=== PATIENT | female | born 1990 | race Two or more races ===

== ENCOUNTER 2025-03-27 20:31 | Inpatient (IN) | payer BC ==
[~2025-03-27] VITALS: Ht 188 cm; Wt 127.6 kg
[2025-03-27 21:00] VITALS: BP 140/86; PULSE 80; RESP 18; TEMP 98.5; O2SAT 98
[2025-03-27 21:04] VITALS: BP 140/86; PULSE 80; RESP 18; TEMP 98.5; O2SAT 98
[2025-03-27] MEDS ORDERED: MULT-1018 PO (21:28)
[2025-03-27] MEDS ORDERED: CHOL20007 PO (21:28)
[2025-03-27] MEDS ORDERED: HYDROmorphone HCL 2 MG/ML VL/or syr IV PRN ×4 (21:30→22:30)
[2025-03-27] MEDS ORDERED: ONDANSETRON HCL 4 MG/2 ML VIAL IV PRN (21:30)
[2025-03-27 22:00] VITALS: PULSE 77; RESP 18
[2025-03-27] MEDS ORDERED: NITROGLYCERIN 0.4 MG SL TAB SL PRN (22:15)
[2025-03-27] MEDS: SOD CHL 0.45% IV ONE (22:15)
[2025-03-27] MEDS ORDERED: MORPHINE SULFATE INJ 2 MG/ml SYRG IV PRN ×2 (22:15→22:30)
--- NOTE | 2025-03-27 23:12 | DVHHP2 ---
Admitting Diagnosis: Recurrent RLQ abdominal pains Nausea vomiting History of Present Illness Ms. Ceron 35-year-old female Is admitted for further eval and management of signs symptoms of recurrence of RLQ abdominal pains associated with nausea vomiting for past 3-4 days The patient had known prior history of ovarian cyst which measures 4 cm by ultrasound. She follows up with Dr. Torrez as outpatient. Her next due appointment is April 2025, recently I attended the patient for similar symptoms Past Medical History Past medical history records: Reviewed Cardiovascular history: Respiratory history: obesity hypoventilation Gastrointestinal history: Genitourinary history: Endocrine history: Obesity with current BMI 36 kg per m2 Patient follows diet and exercise Thyroid goiter Neurology history: Musculoskeletal history: Chronic macular erythematous rash over upper chest Hemato-oncology history: Iron-deficiency anemia Psychiatric history: Patient Family History: Cardiovascular disease G8 FATHER Diabetes mellitus G8 MOTHER Home Meds Reported Medications Multiple Vitamin (Multivitamins) Tab, 1 TAB PO DAILY, #90 TAB 3 Refills 03/27/25 Cholecalciferol (VITAMIN D3) 2,000 Unit Tab, 1 TAB PO DAILY, #30 TAB 5 Refills 03/27/25 Current Medications Current Medications Medications (Trade) Dose Ordered Sig/Bryce Route PRN Reason Start Time Stop Time Status Last Admin Sodium Chloride 1,000 ml @ 60 mls/hr [id number] IV 03/27/25 21:30 UNV Pantoprazole Sodium (Protonix) 40 mg BID IV 03/28/25 08:00 UNV Ondansetron HCl (Zofran) 4 mg Q8HPRN PRN IV NAUSEA / VOMITING 03/27/25 21:30 UNV Hydromorphone HCl (Dilaudid Injection) 0.6 mg Q4HPRN PRN IV MODERATE PAIN (4-6 PAIN SCALE) 03/27/25 21:30 03/27/25 22:43 DC Hydromorphone HCl (Dilaudid Injection) 0.8 mg Q4HPRN PRN IV SEVERE PAIN (7-10 PAIN SCALE) 03/27/25 21:30 03/27/25 22:43 DC Ceftriaxone Sodium 50 ml @ 100 mls/hr DAILY@09 IV 03/27/25 22:00 UNV Nitroglycerin (Ntrostat Sublingual) 0.4 mg Q5MINP PRN SL FOR CHEST PAIN 03/27/25 22:15 UNV Morphine Sulfate 2 mg Q30M PRN IV FOR CHEST PAIN 03/27/25 22:15 03/27/25 22:43 DC Hydromorphone HCl (Dilaudid Injection) 0.6 mg Q4HPRN PRN IV MODERATE PAIN (4-6 PAIN SCALE) 03/27/25 22:30 UNV Hydromorphone HCl (Dilaudid Injection) 0.8 mg Q4HPRN PRN IV SEVERE PAIN (7-10 PAIN SCALE) 03/27/25 22:30 UNV Morphine Sulfate 2 mg Q30M PRN IV FOR CHEST PAIN 03/27/25 22:30 UNV Review of Systems Constitutional: Denies easy tiredness, denies fever chills weight loss HEENT: Denies headache/conjunctival/ENT pains or congestion, Denies hoarse voice, hearing or visual deficit Neck: Denies cervical spine local/radicular pains, denies goiters/stridor Denies stiffness spasms, reduced ROM, RS: Denies chest congestion, cough, wheezing, SOB, pleuritic chest pains CVS: Denies angina, palpitation, SOB, edema, orthopnea, PND GI: Reports loss of appetite, abdominal pains, tenderness, N/V Denies melena, GI bleeding,constipation, : Reports RLQ abdominal pain Denies dysuria, flank pains, frequency, hematuria, Denies passing foul odor/cloudy turbid urine, nocturia MS: Denies generalized aches/pains, back pains, spasms, stiffness, Denies radicular pains, denies generalized myalgias/muscle weakness EXTs: Denies edema, rash, open wounds, discoloration, radicular pains NEURO: Denies hypersomnolence, confused mental status, Denies focal weakness or seizures/tremors/myoclonic jerks SKIN: Denies rashes or open ulcerated wound ENDOCRINE: Denies polyuria, polydipsia, denies intolerance to heat and cold HEM/LYMPH: Denies easy tiredness, bruising, lymphadenopathy ALLERGY: Denies allergic reactions Psychiatry: Denies anxiety or depression disorder Otherwise the Review of Systems is Negative as per History & Physical Interview: Yes Vital Signs Vital Signs Date Time Temp Pulse Resp B/P (MAP) Pulse Ox O2 Delivery O2 Flow Rate FiO2 03/27/25 21:04 98.5 80 18 140/86 (104) 98 98.5 Physical Exam General appearance: Well-developed, tall obese [place] female Awake alert oriented x3 no respiratory distress Head: Normocephalic nontraumatic Eyes: EOMI, PAULA, sclera nonicteric, conjunctive- pale ENT: No congestion, NSL bilateral symmetrical, oral mucosa dry Neck: Supple, carotid upstroke +2, trachea midline, JVD-3 cm, C spine- Full ROM No thyroid or lymph node , no use of sternomastoid muscle Chest: Bilateral symmetrical expansions, No costochondral tenderness Breasts: I exam - Bilateral symmetrical, Pexam - deferred Lungs: clear breath sounds all over except reduced at bases CVS: PMI- cm medial to L MCL in fifth ICS , S1- S2 NSR no S3 GI: Abdomen soft, obese, bowel sounds normoactive No focal tenderness, no rebound tenderness No hepatosplenomegaly, no mass no hernia , : No CVA tenderness, no bladder mass palpable, genitalia-NE SKIN: Turgor normal, color pink, no rash, no icterus, No varicosity, no ulcers or wounds EXTs: No edema, color pink, no rash, no ecchymosis distal pulses +2 capillary refill <2 seconds, No open wounds JOINTS; full range of motion BACK: No apparent lumbosacral spinal muscle tenderness, LYMPH NODES: No cervical, axillary or inguinal lymph nodes Neuro: Awake alert oriented 4, coherent, all cognitives- intact No pronator drift, no focal motor deficit, No focal sensory deficit, DTR +2, gait steady PSYCH: Affect mildly depressed-denies suicidal ideation Admitting Diagnosis: RLQ abdominal pains a. Ruled out acute appendicitis b. Torsion of ovarian cyst Hypovolemia Plan Admit patient to medical floor TOM SPARROW MD March 27, 2025 23:12
[2025-03-28] VITALS (9 sets, daily range): BP systolic 121–135; BP diastolic 69–90; PULSE 68–80; RESP 16–20; TEMP 97.5–98.5; O2SAT 96–98
[2025-03-28 00:25] LABS: Eosinophils # (auto) 0.1 10 ^3/uL (0-0.8); Hemoglobin 10.3 g/dL (12.2-16.2); Monocytes # (auto) 0.4 10 ^3/uL (0-1.3); Neutrophils # (auto) 3.6 10 ^3/uL (1.6-8.6); Nucleated Red Blood Cells % 0.1 %
[2025-03-28 00:27] LABS: Basophils # (auto) 0.1 10 ^3/uL (0-0.2); Basophils % (auto) 0.9 % (0.0-2.0); Eosinophils % (auto) 1.6 % (0.0-7.0); Hematocrit 33.9 % (36.0-46.0); Lymphocytes % (auto) 32.2 % (10.0-50.0); Mean Corpuscular Hemoglobin 22.8 pg (28.0-32.0); Mean Corpuscular Hgb Conc. 30.4 g/dL (32.0-36.0); Mean Corpuscular Volume 74.9 fL (80.0-100.0); Monocytes % (auto) 6.9 % (0.0-12.0); Neutrophils % (auto) 58.4 % (37.0-80.0); Platelet Count (auto) 304 10^3/uL (140-450); Red Blood Cells 4.52 10^6/uL (4.0-5.20); Red Cell Distribution Width 18.2 % (11.8-14.3); White Blood Cell 6.1 10^3/uL (4.4-10.8)
[2025-03-28 00:35] LABS: Alanine Aminotransferase 686 U/L (7-40); Albumin 4.1 g/dL (3.2-4.8); Alkaline Phosphatase 184 U/L (46-116); Anion Gap 9 (5-15); Aspartate Aminotransferase 564 U/L (13-40); BUN/Creatinine Ratio 9.8 (10.0-20.0); Blood Urea Nitrogen 8 mg/dL (9-23); Carbon Dioxide 22 mmol/L (20-31); Chloride 108 mmol/L (98-107); Glucose 86 mg/dL (74-106); Sodium 139 mmol/L (136-145); Total Protein 6.9 g/dL (5.7-8.2)
[2025-03-28 00:36] LABS: Bilirubin, Total 1.5 mg/dL (0.2-1.0)
[2025-03-28] MEDS: PANTOPRAZOLE 40 MG/10 ML VIAL INJ IV ONE (01:02)
[2025-03-28] MEDS: SOD CHL 0.45% 1,000 ML IV SCH ×2 (01:02→11:45)
--- NOTE | 2025-03-28 01:25 | DVH ---
INDICATION: abdominal pain TECHNIQUE: Multiple real-time sonographic images were obtained of the right upper quadrant. COMPARISON: None FINDINGS: Liver is within normal limits in size and echogenicity measuring 15.8 cm. No focal lesions identified in the liver. There is no intrahepatic or extrahepatic ductal dilatation with the common bile duct measuring 3.5 mm . S/p cholecystectomy. Pancreas is obscured by overlying bowel gas. Right kidney measures 10 cm and appears unremarkable with no hydronephrosis. IMPRESSION: S/p cholecystectomy. Otherwise unremarkable right upper quadrant sonogram.
--- NOTE | 2025-03-28 01:27 | DVH ---
INDICATION: HX OF OV CYST TECHNIQUE: Multiple real-time grayscale transabdominal sonographic images along with color and duplex Doppler of the uterus and ovaries were obtained. COMPARISON: None FINDINGS: Uterus measures approximately 8.6 x 5 x 5 cm and appears unremarkable. Endometrium measures 4.5 mm in thickness and appears unremarkable. Neither of the ovaries could be visualized. No evidence of pelvic mass or fluid collection. IMPRESSION: No abnormality demonstrated.
[2025-03-28] MEDS: cefTRIAXone 1GM/50ML D5W 50 ML IV SCH (02:36)
[2025-03-28 04:53] LABS: Urine Bacteria None Seen /hpf (None Seen)
[2025-03-28 05:05] LABS: Urine Blood 3+ /uL (Negative); Urine Clarity Clear (Clear); Urine Color Yellow (Yellow); Urine Protein, UAD Negative (Negative); Urine Squamous Epithelial Cell FEW /hpf (<5); Urine Urobilinogen Normal (Negative); Urine WBC 2 /HPF (0-5)
--- NOTE | 2025-03-28 05:33 | DVH ---
EXAM: XR Chest, 1 View CLINICAL INDICATION: abdominal pain TECHNIQUE: Frontal view of the chest. COMPARISON: None FINDINGS: LUNGS AND PLEURAL SPACES: Unremarkable. No consolidation. No pneumothorax. HEART: Unremarkable. No cardiomegaly. MEDIASTINUM: Unremarkable. Normal mediastinal contour. BONES/JOINTS: Unremarkable. No acute fracture. OTHER FINDINGS: . IMPRESSION: No acute cardiopulmonary process.
[2025-03-28] MEDS: PANTOPRAZOLE 40 MG/10 ML VIAL INJ IV SCH (07:23)
[2025-03-28 09:02] LABS: Basophils # (auto) 0 10 ^3/uL (0-0.2); Hemoglobin 10.1 g/dL (12.2-16.2); Monocytes # (auto) 0.4 10 ^3/uL (0-1.3); White Blood Cell 5.2 10^3/uL (4.4-10.8)
[2025-03-28 09:04] LABS: Basophils % (auto) 0.8 % (0.0-2.0); Eosinophils # (auto) 0.1 10 ^3/uL (0-0.8); Eosinophils % (auto) 2.4 % (0.0-7.0); Lymphocytes % (auto) 37.2 % (10.0-50.0); Mean Corpuscular Hemoglobin 22.8 pg (28.0-32.0); Mean Corpuscular Hgb Conc. 31.5 g/dL (32.0-36.0); Mean Corpuscular Volume 72.2 fL (80.0-100.0); Monocytes % (auto) 7.1 % (0.0-12.0); Neutrophils # (auto) 2.8 10 ^3/uL (1.6-8.6); Neutrophils % (auto) 52.5 % (37.0-80.0); Nucleated Red Blood Cells % 0.1 %; Platelet Count (auto) 348 10^3/uL (140-450); Red Blood Cells 4.44 10^6/uL (4.0-5.20); Red Cell Distribution Width 17.9 % (11.8-14.3)
[2025-03-28 09:05] LABS: Albumin 4.3 g/dL (3.2-4.8); Anion Gap 7 (5-15); BUN/Creatinine Ratio 8.1 (10.0-20.0); Calcium 9.5 mg/dL (8.7-10.4); Carbon Dioxide 24 mmol/L (20-31); Glucose 95 mg/dL (74-106); Potassium 4.1 mmol/L (3.5-5.1); Sodium 141 mmol/L (136-145); Total Protein 7.2 g/dL (5.7-8.2)
[2025-03-28 09:06] LABS: Bilirubin, Total 1.1 mg/dL (0.2-1.0)
[2025-03-28 09:07] LABS: Alanine Aminotransferase 627 U/L (7-40); Alkaline Phosphatase 207 U/L (46-116); Aspartate Aminotransferase 477 U/L (13-40); Blood Urea Nitrogen 7 mg/dL (9-23); Chloride 110 mmol/L (98-107)
[2025-03-28] MEDS: IOHEXOL 300 MG/ML 100ML BOTTLE IJ ONE (11:32)
[2025-03-28] MEDS: OMNIPAQUE 12mg/ml 500ml ORAL SOLUTION PO ONE (11:32)
--- NOTE | 2025-03-28 11:35 | DVH ---
Exam: CT CT ABD PELVIS W CON-ORAL IV History: abdominal pain TECHNIQUE: Multiple contiguous axial CT images of the abdomen and pelvis were obtained with intraveno us and oral contrast. The images were reformatted to generate coronal and sagittal reconstructions. 1 00 cc of Omnipaque 350 contrast was injected intravenously. All CT scans at this medical facility are performed using dose modulation techniques as appropriate t o a performed exam including the following:Automated exposure control was utilized; adjustment of the MA and/or KV according to patient size; and use of iterative reconstruction technique. Radiation Dose Information: CT Dose: CTDI volume is 25.69 mGy. Dose-length product is 1521.64 mGy*cm Comparison: None FINDINGS: Gallbladder is surgically absent. The liver demonstrates decreased attenuation likely related fatty i nfiltration. The pancreas, kidneys, adrenal glands, and spleen appear within normal limits. There is no evidence of abdominal lymphadenopathy. There is no free fluid or free air. The stomach grossly appears unremarkable. The small and large bowel loops demonstrate normal caliber and distribution. The appendix is not seen in the right lower quadrant abdomen. There are no secondar y signs of acute appendicitis. The abdominal aorta and IVC appear within normal limits. The bladder appears within normal limits the degree of distention. The uterus appears within normal l imits. There is no evidence of a pelvic mass or lymphadenopathy. There is no free fluid collection. Lung bases are clear. There is no acute osseous abnormality. IMPRESSION: 1. There is no acute process in the abdomen and pelvis. 2. Hepatic steatosis. 3. Cholecystectomy. HS:Y
--- NOTE | 2025-03-28 11:45 | DVHPN2 ---
Progress Note - Dictate vital signs Vital Sign Date Time Temp Pulse Resp B/P (MAP) Pulse Ox O2 Delivery O2 Flow Rate FiO2 03/28/25 09:00 98.5 68 18 135/90 (105) 97 98.5 03/28/25 08:00 Room Air* 0 21 Total Intake and Output 03/27/25 03/27/25 03/28/25 15:00 23:00 07:00 Intake Total 630 ml Balance 630 ml medications Current Medications Medications Dose Ordered Sig/Bryce Route Start Time Stop Time Status Last Admin Dose Admin Sodium Chloride 1,000 ml @ 60 mls/hr [id number] IV 03/27/25 21:30 03/28/25 01:02 60 MLS/HR Pantoprazole Sodium 40 mg BID IV 03/28/25 08:00 03/28/25 09:42 40 MG Ondansetron HCl 4 mg Q8HPRN PRN IV 03/27/25 21:30 Ceftriaxone Sodium 50 ml @ 100 mls/hr Q24H IV 03/28/25 02:00 03/28/25 02:36 100 MLS/HR Nitroglycerin 0.4 mg Q5MINP PRN SL 03/27/25 22:15 Hydromorphone HCl 0.6 mg Q4HPRN PRN IV 03/27/25 22:30 Hydromorphone HCl 0.8 mg Q4HPRN PRN IV 03/27/25 22:30 Morphine Sulfate 2 mg Q30M PRN IV 03/27/25 22:30 objective Physical Exam General appearance: Well-developed, tall obese female Awake alert oriented x3 no respiratory distress Head: Normocephalic nontraumatic Eyes: EOMI, PAULA, sclera nonicteric, conjunctive- pale ENT: No congestion, NSL bilateral symmetrical, oral mucosa dry Neck: Supple, carotid upstroke +2, trachea midline, JVD-3 cm, C spine- Full ROM No thyroid or lymph node , no use of sternomastoid muscle Chest: Bilateral symmetrical expansions, No costochondral tenderness Breasts: I exam - Bilateral symmetrical, Pexam - deferred Lungs: clear breath sounds all over except reduced at bases CVS: PMI- cm medial to L MCL in fifth ICS , S1- S2 NSR no S3 GI: Abdomen soft, obese, bowel sounds normoactive No focal tenderness, no rebound tenderness No hepatosplenomegaly, no mass no hernia , : No CVA tenderness, no bladder mass palpable, genitalia-NE SKIN: Turgor normal, color pink, no rash, no icterus, No varicosity, no ulcers or wounds EXTs: No edema, color pink, no rash, no ecchymosis distal pulses +2 capillary refill <2 seconds, No open wounds JOINTS; full range of motion BACK: No apparent lumbosacral spinal muscle tenderness, LYMPH NODES: No cervical, axillary or inguinal lymph nodes Neuro: Awake alert oriented 4, coherent, all cognitives- intact No pronator drift, no focal motor deficit, No focal sensory deficit, DTR +2, gait steady PSYCH: Affect mildly depressed-denies suicidal ideation laboratory and microbiology Laboratory Tests 03/28/25 08:35 Test 03/28/25 08:35 Range/Units Serum Glucose 95 74-106 mg/dL Problem List Admitting Diagnosis: RLQ abdominal pains a. Ruled out acute appendicitis b. Torsion of ovarian cyst Hypovolemia Assessment/Plan Plan Admit patient to medical floor TMO SPARROW MD March 28, 2025 11:45
--- NOTE | 2025-03-28 12:52 | DVHINCON2 ---
Date of service: March 28, 2025 Referring Physician hospitalist Reason for Consultation ovarian cyst History of Present Illness pt is admitted for rlq pain assoc with n and vomiting.she has hx of ovarian cyst last cyst 4cm she sees dr smith and was told she has pcos Past Medical History na Past Surgical History choleystectomy Family History na Social History na Patient Family History: Cardiovascular disease G8 FATHER Diabetes mellitus G8 MOTHER Allergies: Coded Allergies: Penicillins (Verified Allergy, Unknown, 03/27/25) Home Meds Reported Medications Multiple Vitamin (Multivitamins) Tab, 1 TAB PO DAILY, #90 TAB 3 Refills 03/27/25 Cholecalciferol (VITAMIN D3) 2,000 Unit Tab, 1 TAB PO DAILY, #30 TAB 5 Refills 03/27/25 Current Medications Current Medications Medications (Trade) Dose Ordered Sig/Bryce Route PRN Reason Start Time Stop Time Status Last Admin Sodium Chloride 1,000 ml @ 60 mls/hr [id number] IV 03/27/25 21:30 03/28/25 11:44 DC 03/28/25 01:02 Pantoprazole Sodium (Protonix) 40 mg BID IV 03/28/25 08:00 03/28/25 09:42 Ondansetron HCl (Zofran) 4 mg Q8HPRN PRN IV NAUSEA / VOMITING 03/27/25 21:30 Hydromorphone HCl (Dilaudid Injection) 0.6 mg Q4HPRN PRN IV MODERATE PAIN (4-6 PAIN SCALE) 03/27/25 21:30 03/27/25 22:43 DC Hydromorphone HCl (Dilaudid Injection) 0.8 mg Q4HPRN PRN IV SEVERE PAIN (7-10 PAIN SCALE) 03/27/25 21:30 03/27/25 22:43 DC Ceftriaxone Sodium 50 ml @ 100 mls/hr Q24H IV 03/28/25 02:00 03/28/25 02:36 Nitroglycerin (Ntrostat Sublingual) 0.4 mg Q5MINP PRN SL FOR CHEST PAIN 03/27/25 22:15 Morphine Sulfate 2 mg Q30M PRN IV FOR CHEST PAIN 03/27/25 22:15 03/27/25 22:43 DC Hydromorphone HCl (Dilaudid Injection) 0.6 mg Q4HPRN PRN IV MODERATE PAIN (4-6 PAIN SCALE) 03/27/25 22:30 Hydromorphone HCl (Dilaudid Injection) 0.8 mg Q4HPRN PRN IV SEVERE PAIN (7-10 PAIN SCALE) 03/27/25 22:30 Morphine Sulfate 2 mg Q30M PRN IV FOR CHEST PAIN 03/27/25 22:30 Sodium Chloride 1,000 ml @ 40 mls/hr Q24H IV 03/28/25 11:45 03/28/25 11:45 Review of Systems Constitutional: no fever, chill, weight loss HEENT: no eye pain, no hearing loss, no oral lesion, no scleral icterus Heart: no chest pain, no chest pressure Lung: no cough, no dyspnea with exertion Abdomen: see HPI : no pain with urination, normal appearing urine Musculoskeletal: no joint pain, no muscle pain Neurological: no seizure, no loss of sensation, no weakness in extremities Pysch: no depression, no anxiety Derm: no rash, no jaundice Vital Signs Vital Signs Date Time Temp Pulse Resp B/P (MAP) Pulse Ox O2 Delivery O2 Flow Rate FiO2 03/28/25 09:00 98.5 68 18 135/90 (105) 97 98.5 03/28/25 08:00 Room Air* 0 21 Physical Exam SKIN: [nl] HEENT: [nl] NECK: [nl] CARDIAC: [rrr] PULMONARY: [cta] ABDOMEN: [soft ,nt] pelvic -ext genitalia wnl,uterus 8 wks size,nt Labs/Diagnostic Data Labs Test 03/28/25 11:28 03/28/25 08:35 03/28/25 04:45 Range/Units White Blood Count 5.2 4.4-10.8 10^3/uL Red Blood Count 4.44 4.0-5.20 10^6/uL Hemoglobin 10.1 L 12.2-16.2 g/dL Hematocrit 32.0 L 36.0-46.0 % Mean Corpuscular Volume 72.2 L 80.0-100.0 fL Mean Corpuscular Hemoglobin 22.8 L 28.0-32.0 pg Mean Corpuscular Hemoglobin Concent 31.5 L 32.0-36.0 g/dL Red Cell Distribution Width 17.9 H 11.8-14.3 % Platelet Count 348 140-450 10^3/uL Mean Platelet Volume 7.8 6.9-10.8 fL Neutrophils (%) (Auto) 52.5 37.0-80.0 % Lymphocytes (%) (Auto) 37.2 10.0-50.0 % Monocytes (%) (Auto) 7.1 0.0-12.0 % Eosinophils (%) (Auto) 2.4 0.0-7.0 % Basophils (%) (Auto) 0.8 0.0-2.0 % Neutrophils # (Auto) 2.8 1.6-8.6 10 ^3/uL Lymphocytes # (Auto) 2.0 0.4-5.4 10 ^3/uL Monocytes # (Auto) 0.4 0-1.3 10 ^3/uL Eosinophils # (Auto) 0.1 0-0.8 10 ^3/uL Basophils # (Auto) 0 0-0.2 10 ^3/uL Nucleated Red Blood Cells 0.1 % Sodium Level 141 136-145 mmol/L Potassium Level 4.1 3.5-5.1 mmol/L Chloride Level 110 H 98-107 mmol/L Carbon Dioxide Level 24 20-31 mmol/L Anion Gap 7 5-15 Blood Urea Nitrogen 7 L 9-23 mg/dL Creatinine 0.86 0.550-1.02 mg/dL Glomerular Filtration Rate Calc 91 >90 mL/min BUN/Creatinine Ratio 8.1 L 10.0-20.0 Serum Glucose 95 74-106 mg/dL Calcium Level 9.5 8.7-10.4 mg/dL Total Bilirubin 1.1 H 0.2-1.0 mg/dL Aspartate Amino Transferase (AST) 477 H 13-40 U/L Alanine Aminotransferase (ALT) 627 H 7-40 U/L Alkaline Phosphatase 207 H 46-116 U/L Total Protein 7.2 5.7-8.2 g/dL Albumin 4.3 3.2-4.8 g/dL Lipase 31 12-53 U/L Urine Color Yellow Yellow Urine Clarity Clear Clear Urine pH 6.0 5.0-9.0 Urine Specific [place] 1.010 1.001-1.035 Urine Protein Negative Negative Urine Ketones Negative Negative Urine Blood 3+ H Negative /uL Urine Nitrite Negative Negative Urine Bilirubin Negative Negative Urine Urobilinogen Normal Negative mg/dL Urine Leukocyte Esterase Negative Negative /uL Urine RBC 50 0 - 4 /hpf Urine Microscopic WBC 2 0-5 /HPF Urine Squamous Epithelial Cells Few <5 /hpf Urine Bacteria None seen None Seen /hpf Urine Glucose Normal Normal mg/dL Primary Diagnosis abd pain 2' Diagnosis/Comorbidities hx of ovarian cyst currently no evidence of cyst Plan pt is to fu outpt with dr smith \ no intervention needed at this point Plan discussed with: Patient Visit Coding OBGYN Date of Service: March 28, 2025 Billing Provider: MARY CARMEN THORNE DO COMPUTATIONAL SCIENTIST Common Visit Codes: 90251-[id number] OBS CARE (HIGH), 44452-EFF/OBS DISCH DAY >30MIN MARY CARMEN THORNE DO March 28, 2025 12:52
--- NOTE | 2025-03-28 14:28 | DVHINCON2 ---
GI Consult Consult Note GI consult note Date of Consultation: 03/28/2025 Chief Complaint: Abdominal pain Referring Physician: Dr. Harden H&P: 35-year-old female admitted with right lower quadrant abdominal pain, started one-week ago, improved completely now. Patient was also on her menstrual cycle when symptoms started. Patient has history of ovarian cyst. Denies nausea vomiting. BM today no melena or red blood in stool Patient denies alcohol use. Denies history of hepatitis. Does not take Tylenol Status post cholecystectomy Past Medical History: Thyroid, iron deficiency anemia, ovarian cyst Past Surgical History: Cholecystectomy Social History: NO smoking, drinking ETOH and use of illegal drugs. Family History: Noncontributory Review of Systems: Constitutional: no fever, chill, weight loss HEENT: no eye pain, no hearing loss, no oral lesion, no scleral icterus Heart: no chest pain, no chest pressure Lung: no cough, no dyspnea with exertion Abdomen: see HPI Physical exam: General: NAD, AAOX3 Chest: lung mcdaniel clear to auscultation Heart: RRR, no murmur Abdomen: non-distended, no tenderness to palpation, +BS Labs: Labs Test 03/28/25 11:28 03/28/25 08:35 03/28/25 04:45 Range/Units White Blood Count 5.2 4.4-10.8 10^3/uL Red Blood Count 4.44 4.0-5.20 10^6/uL Hemoglobin 10.1 L 12.2-16.2 g/dL Hematocrit 32.0 L 36.0-46.0 % Mean Corpuscular Volume 72.2 L 80.0-100.0 fL Mean Corpuscular Hemoglobin 22.8 L 28.0-32.0 pg Mean Corpuscular Hemoglobin Concent 31.5 L 32.0-36.0 g/dL Red Cell Distribution Width 17.9 H 11.8-14.3 % Platelet Count 348 140-450 10^3/uL Mean Platelet Volume 7.8 6.9-10.8 fL Neutrophils (%) (Auto) 52.5 37.0-80.0 % Lymphocytes (%) (Auto) 37.2 10.0-50.0 % Monocytes (%) (Auto) 7.1 0.0-12.0 % Eosinophils (%) (Auto) 2.4 0.0-7.0 % Basophils (%) (Auto) 0.8 0.0-2.0 % Neutrophils # (Auto) 2.8 1.6-8.6 10 ^3/uL Lymphocytes # (Auto) 2.0 0.4-5.4 10 ^3/uL Monocytes # (Auto) 0.4 0-1.3 10 ^3/uL Eosinophils # (Auto) 0.1 0-0.8 10 ^3/uL Basophils # (Auto) 0 0-0.2 10 ^3/uL Nucleated Red Blood Cells 0.1 % Sodium Level 141 136-145 mmol/L Potassium Level 4.1 3.5-5.1 mmol/L Chloride Level 110 H 98-107 mmol/L Carbon Dioxide Level 24 20-31 mmol/L Anion Gap 7 5-15 Blood Urea Nitrogen 7 L 9-23 mg/dL Creatinine 0.86 0.550-1.02 mg/dL Glomerular Filtration Rate Calc 91 >90 mL/min BUN/Creatinine Ratio 8.1 L 10.0-20.0 Serum Glucose 95 74-106 mg/dL Calcium Level 9.5 8.7-10.4 mg/dL Total Bilirubin 1.1 H 0.2-1.0 mg/dL Aspartate Amino Transferase (AST) 477 H 13-40 U/L Alanine Aminotransferase (ALT) 627 H 7-40 U/L Alkaline Phosphatase 207 H 46-116 U/L Total Protein 7.2 5.7-8.2 g/dL Albumin 4.3 3.2-4.8 g/dL Lipase 31 12-53 U/L Urine Color Yellow Yellow Urine Clarity Clear Clear Urine pH 6.0 5.0-9.0 Urine Specific [place] 1.010 1.001-1.035 Urine Protein Negative Negative Urine Ketones Negative Negative Urine Blood 3+ H Negative /uL Urine Nitrite Negative Negative Urine Bilirubin Negative Negative Urine Urobilinogen Normal Negative mg/dL Urine Leukocyte Esterase Negative Negative /uL Urine RBC 50 0 - 4 /hpf Urine Microscopic WBC 2 0-5 /HPF Urine Squamous Epithelial Cells Few <5 /hpf Urine Bacteria None seen None Seen /hpf Urine Glucose Normal Normal mg/dL Imaging: CT abdomen pelvis IMPRESSION: 1. There is no acute process in the abdomen and pelvis. 2. Hepatic steatosis. 3. Cholecystectomy. Abdominal ultrasound IMPRESSION: S/p cholecystectomy. Otherwise unremarkable right upper quadrant sonogram. Pelvic ultrasound IMPRESSION: No abnormality demonstrated. Assessment: Abdominal pain improved History of ovarian cyst Elevated LFTs Status post cholecystectomy Plan: Discussed with Dr. Shaffer Monitor labs Recommend MRCP DC hepatotoxic medications Outpatient GI follow-up recommended in 4-6 weeks Thank you for this consult Date of Service: March 28, 2025 Billing Provider: RAHEEM CRANE Common Visit Codes: CONSULT ONLY Consultation Codes: [id number] CONSULT <60MIN RAHEEM CRANE March 28, 2025 14:28
--- NOTE | 2025-03-28 17:24 | DVH ---
[id number] MRI MRCP MRI Attending Name: TOM SPARROW COMPARISON: CT scan performed the same day INDICATION: elevated LFTs TECHNIQUE: MRCP was performed without the use of intravenous contrast using a MRI imaging system. Three-dimensional MRCP was performed using maximum intensity projection reconstruction on an [facility] ent workstation under concurrent supervision. FINDINGS: Visualized lower thorax: Limited imaging of the thorax demonstrates no suspicious pleural or parenchy mal disease. Liver: Mild hepatomegaly. Hepatic steatosis noted. Gallbladder: Surgically absent. No fluid collection or inflammatory changes in the gallbladder fossa . Biliary system: There is no intrahepatic or extrahepatic bile duct dilatation. The common bile duct m easures 0.3 cm in caliber No filling defect to suggest choledocholithiasis. Spleen: Normal in morphology and signal intensity. Pancreas: Normal in morphology and signal intensity. Adrenal glands: Normal in morphology and signal intensity. Kidneys: The kidneys are symmetric in size and appearance. No hydronephrosis. Urinary tract: The included ureters, as visualized, are normal in course and caliber. GI tract: The included portions of the bowel are within normal limits. Lymph nodes: No enlarged lymph nodes. Peritoneum: No ascites. Musculoskeletal: The bone marrow signal intensity is within normal limits. IMPRESSION: 1. No intra or extra hepatic biliary ductal dilatation. No MRI evidence of choledocholithiasis. 2. Status post cholecystectomy. 3. Mild hepatomegaly and hepatic steatosis.
[2025-03-29 01:00] VITALS: BP 112/58; PULSE 78; RESP 18; TEMP 97.6; O2SAT 97
[2025-03-29 05:00] VITALS: BP 108/72; PULSE 84; RESP 18; TEMP 97.9; O2SAT 99
[2025-03-29 07:56] LABS: Basophils # (auto) 0 10 ^3/uL (0-0.2); Eosinophils # (auto) 0.1 10 ^3/uL (0-0.8); Hematocrit 31.1 % (36.0-46.0); Lymphocytes # (auto) 1.9 10 ^3/uL (0.4-5.4); Mean Corpuscular Hemoglobin 22.8 pg (28.0-32.0); Mean Corpuscular Hgb Conc. 31.7 g/dL (32.0-36.0); Monocytes # (auto) 0.4 10 ^3/uL (0-1.3); Neutrophils # (auto) 3.2 10 ^3/uL (1.6-8.6); Red Blood Cells 4.32 10^6/uL (4.0-5.20); White Blood Cell 5.7 10^3/uL (4.4-10.8)
[2025-03-29 08:00] VITALS: PULSE 85; RESP 18; O2SAT 98
[2025-03-29 08:02] LABS: Basophils % (auto) 0.7 % (0.0-2.0); Eosinophils % (auto) 2.4 % (0.0-7.0); Hemoglobin 9.9 g/dL (12.2-16.2); Lymphocytes % (auto) 33.7 % (10.0-50.0); Monocytes % (auto) 6.4 % (0.0-12.0); Neutrophils % (auto) 56.8 % (37.0-80.0); Nucleated Red Blood Cells % 0.1 %; Platelet Count (auto) 296 10^3/uL (140-450); Red Cell Distribution Width 18.5 % (11.8-14.3)
[2025-03-29 08:13] LABS: Albumin 3.9 g/dL (3.2-4.8); Anion Gap 7 (5-15); BUN/Creatinine Ratio 12.8 (10.0-20.0); Bilirubin, Total 0.4 mg/dL (0.2-1.0); Blood Urea Nitrogen 11 mg/dL (9-23); Calcium 9.3 mg/dL (8.7-10.4); Carbon Dioxide 25 mmol/L (20-31); Glucose 101 mg/dL (74-106); Potassium 4.5 mmol/L (3.5-5.1); Sodium 143 mmol/L (136-145); Total Protein 6.6 g/dL (5.7-8.2)
[2025-03-29 08:14] LABS: Alanine Aminotransferase 479 U/L (7-40); Alkaline Phosphatase 174 U/L (46-116); Aspartate Aminotransferase 197 U/L (13-40); Chloride 111 mmol/L (98-107)
[2025-03-29 09:00] VITALS: BP 125/75; PULSE 75; RESP 18; TEMP 98.1; O2SAT 98
[2025-03-29] MEDS ORDERED: PANT40TA2 PO (09:08)
[2025-03-29] MEDS ORDERED: SUCR1TAB31 OR (09:11)
[2025-03-29 11:08] LABS: Hepatitis B Surface Antigen Negative (Negative); Hepatitis C Antibody Negative (Negative)
[2025-03-29 12:12] LABS: Hepatitis B Core Total AB Negative (Negative)
--- NOTE | 2025-03-29 12:39 | DVHPN2 ---
Progress Note - Dictate Date Seen: March 29, 2025 Medical Necessity Reason Pt with a Central, PICC or Fol: No Subjective No new complaints Patient feels better Abdominal pain has resolved MRCP test is negative Liver enzymes trending down vital signs Vital Sign Date Time Temp Pulse Resp B/P (MAP) Pulse Ox O2 Delivery O2 Flow Rate FiO2 03/29/25 09:00 98.1 75 18 125/75 (92) 98 98.1 03/29/25 08:00 Room Air* 0 21 Total Intake and Output 03/28/25 03/28/25 03/29/25 15:00 23:00 07:00 Intake Total 900 ml 3050 ml Balance 900 ml 3050 ml medications Current Medications Medications Dose Ordered Sig/Bryce Route Start Time Stop Time Status Last Admin Dose Admin Pantoprazole Sodium 40 mg BID IV 03/28/25 08:00 03/29/25 08:23 40 MG Ondansetron HCl 4 mg Q8HPRN PRN IV 03/27/25 21:30 Ceftriaxone Sodium 50 ml @ 100 mls/hr Q24H IV 03/28/25 02:00 03/29/25 01:25 100 MLS/HR Nitroglycerin 0.4 mg Q5MINP PRN SL 03/27/25 22:15 Hydromorphone HCl 0.6 mg Q4HPRN PRN IV 03/27/25 22:30 Hydromorphone HCl 0.8 mg Q4HPRN PRN IV 03/27/25 22:30 Morphine Sulfate 2 mg Q30M PRN IV 03/27/25 22:30 Sodium Chloride 1,000 ml @ 40 mls/hr Q24H IV 03/28/25 11:45 03/29/25 01:25 40 MLS/HR objective General: NAD, AAOX3 Chest: lung mcdaniel clear to auscultation Heart: RRR, no murmur Abdomen: non-distended, no tenderness to palpation, +BS Ext no c/c/e laboratory and microbiology Laboratory Tests 03/29/25 07:25 Test 03/29/25 07:25 Range/Units Serum Glucose 101 74-106 mg/dL Problems(with codes): (1) Right lower quadrant abdominal pain (2) Elevated liver enzymes Prognosis Plan Continue supportive care Advance diet Discharge planning as per hospitalist Patient is stable for discharge from GI point of view Patient has made an appointment with me as an outpatient in three weeks Plan discussed with: Patient, Other (Jessie Doll) JEFF ALVARADO MD March 29, 2025 12:39
[2025-03-29 13:03] LABS: Hepatitis A Ab IgM Negative; Hepatitis A Total Antibody Positive (Negative)
[2025-03-29 13:04] LABS: Hepatitis B Core IgM Negative (Negative); Hepatitis B Surface Antibody Positive (Negative); Hepatitis B Surface Antigen Negative (Negative); Hepatitis C Antibody Negative (Negative)
[2025-03-29 17:00] VITALS: BP 100/59; PULSE 65; RESP 17; TEMP 98.9; O2SAT 95
== END 2025-03-29 11:00 | disposition home or self-care (01) | DRG 761 ==
LOC: CENTRAL 20:31 → TELE-CENTR 03-28 07:13
PROVIDERS: ADMIT Specialist; ATTEND Specialist
DX: N83.511 Torsion of right ovary and ovarian pedicle (principal); E86.1 Hypovolemia; E66.9 Obesity, unspecified; N83.201 Unspecified ovarian cyst, right side; D50.9 Iron deficiency anemia, unspecified; Z83.3 Family history of diabetes mellitus; Z79.899 Other long term (current) drug therapy; Z88.0 Allergy status to penicillin; Z90.49 Acquired absence of other specified parts of digestive tract; Z68.36 Body mass index [BMI] 36.0-36.9, adult; Z82.49 Family history of ischemic heart disease and other diseases of the circulatory system
CPT/HCPCS: 36415; 71045; 74177; 74181; 76705; 76856; 80053; 80074; 81001; 83690; 85025; 86038; 86704; 86706; 86708; 86803; 87340; G0378; J2470